=== PATIENT | male | born 1970 | race Caucasian/White ===

== ENCOUNTER 2022-09-02 19:56 | Emergency (ER) | payer BC, SELFPAY ==
--- NOTE | ~2022-09-02 | CT_ITS ---
CT of the Abdomen and Pelvis: Indication: Abdominal pain Technique: 2.5 mm axial scans were obtained through the abdomen and pelvis following intravenous adm inistration of 100 cc of Omnipaque 350. Dose reduction technique was used on this scan by utilizing a utomated exposure control and iterative reconstruction technique. The dose-length product (DLP) was 5 01.72 mGy-cm. COMPARISON: 01/18/2005 Findings: Scans through the lung bases are unremarkable. The liver, spleen, pancreas, gallbladder, adrenals and left kidney are within normal limits. There is a 5 mm right UVJ stone, resulting in mild right hydroureteronephrosis and delayed right nephrogram a s compared to the left side. Additional 3 mm nonobstructing right renal stone is also present. No naga dence of aortic aneurysm. No lymphadenopathy. No bowel obstruction or bowel wall thickening. There is no evidence to suggest acute appendicitis. Images through the pelvis were performed. Urinary bladder unremarkable. Prostate gland is minimally e nlarged. No ascites. Impression: 5 mm right UVJ stone, with mild right hydroureteronephrosis and delayed right nephrogram. Additional 3 mm nonobstructing right renal stone. Reviewed, dictated and finalized at location . Impression: 5 mm right UVJ stone, with mild right hydroureteronephrosis and delayed right n ephrogram. Additional 3 mm nonobstructing right renal stone.
[2022-09-02 19:58] VITALS: BP 184/112; PULSE 85; RESP 18; TEMP 36.6; O2SAT 99
--- NOTE | 2022-09-02 20:10 | ED.GENADULT ---
HPI - General Adult General Chief complaint: Abdominal Pain Stated complaint: right sided abd pain Time Seen by Provider: 09/02/22 20:04 History of Present Illness HPI narrative: Patient is a 52-year-old gentleman who presents the emergency department with chief complaint of abdominal pain. Patient reports that on Saturday he started having pain in the right lower quadrant that radiated to his back patient states it feels like an aching-like pain and reports that he got nauseated and had several episodes of vomiting that night the patient states that the pain has been continuing since then and reports that he went to an urgent care today and they sent him to the emergency department for evaluation. Patient reports no prior history of surgery in the abdomen did report that he had surgery on his scrotum for a blood vessel Related Data Allergies Allergy/AdvReac Type Severity Reaction Status Date / Time Sulfa (Sulfonamide Allergy Unknown Verified 09/02/22 19:57 Antibiotics) Review of Systems Review of Systems: A 10 system review of systems was completed on the patient and is negative except for what is stated in the HPI. Nursing and ancillary documentation was reviewed. Exam Narrative: GENERAL: Well-appearing, well-nourished, and in no acute distress. HEAD: Normocephalic, atraumatic. EYES: PERRLA and EOMI. ENT: Nares clear, no rhinorrhea or epistaxis. Mucous membranes moist. NECK: Supple. CHEST: Clear to auscultation. No respiratory distress. HEART: Regular rate and rhythm. No murmur heard. Normal peripheral pulses. ABDOMEN: Soft, mild tenderness to palpation in the right lower quadrant, nondistended, normal active bowel sounds. EXTREMITIES: Normal range of motion. No edema. SKIN: Warm, dry, no rash. NEURO: No focal deficits. Alert and oriented x3. PSYCH: Normal mood and affect. Course Vital Signs Vital signs: Vital Signs Temperature 36.6 C 09/02/22 19:58 Pulse Rate 85 09/02/22 19:58 Respiratory Rate 18 09/02/22 19:58 Blood Pressure 184/112 H 09/02/22 19:58 Pulse Oximetry 99 09/02/22 19:58 Oxygen Delivery Room Air 09/02/22 19:58 Temperature 36.6 C 09/02/22 19:58 Pulse Rate 79 09/02/22 22:52 Respiratory Rate 19 09/02/22 22:52 Blood Pressure 166/110 H 09/02/22 22:52 Pulse Oximetry 97 09/02/22 22:52 Oxygen Delivery Room Air 09/02/22 19:58 Medical Decision Making MDM Narrative Medical decision making narrative: Differential diagnosis includes appendicitis, diverticulitis, colitis, ureterolithiasis Laboratory studies were obtained and the patient which showed a white count of 7.0 electrolytes showed a sodium of 135 potassium 3.0 creatinine is 1.4 liver enzymes and lipase are within normal limits urinalysis showed no red blood cells and no white blood cells CT scan of the abdomen pelvis showed a 6 mm stone at the UVJ Patient was started on Flomax given a prescription for [place] and Zofran and referred to urology Vital Signs Vital Signs: Vital Signs Temperature 36.6 C 09/02/22 19:58 Pulse Rate 85 09/02/22 19:58 Respiratory Rate 18 09/02/22 19:58 Blood Pressure 184/112 H 09/02/22 19:58 Pulse Oximetry 99 09/02/22 19:58 Oxygen Delivery Room Air 09/02/22 19:58 Temperature 36.6 C 09/02/22 19:58 Pulse Rate 79 09/02/22 22:52 Respiratory Rate 19 09/02/22 22:52 Blood Pressure 166/110 H 09/02/22 22:52 Pulse Oximetry 97 09/02/22 22:52 Oxygen Delivery Room Air 09/02/22 19:58 Lab Data 09/02/22 20:21 09/02/22 20:21 Labs: Lab Results 09/02/22 09/02/22 Range/Units 20:21 21:45 WBC 7.0 (4.5-10.0) K/mm3 RBC 4.39 L (4.6-6.20) M/mm3 Hgb 14.1 (14.0-18.0) g/dL Hct 40.4 L (42.0-52.0) % MCV 92.0 (80-100) fl MCH 32.1 (26-34) pg MCHC 34.9 (32-36) g/dl RDW 11.6 (11.5-14.5) % Plt Count 196 (150-375) k/mm3 MPV 10.5 H (7.4-10.4) fl Immature Gran % (Au
[2022-09-02] MEDS: SODIUM CHLORIDE 0.9% IV 1,000 ML 999 ML IV CONT (20:22)
[2022-09-02 20:29] LABS: Basophils Percent Auto 0.1 % (0.2-1.2); Eosinophils Absolute Auto 0.1 K/mm3 (0-0.3); Eosinophils Percent Auto 1.2 % (0-4.4); Hematocrit 40.4 % (42.0-52.0); Hemoglobin 14.1 g/dL (14.0-18.0); Immature Granulocyte Absolute 0.01 K/mm3 (0.00-0.031); Immature Granulocyte Percent A 0.1 % (0-0.5); Lymphocytes Absolute Auto 0.84 K/mm3 (0.9-3.2); Lymphocytes Percent Auto 12.1 % (18.3-44.2); Mean Corpuscular HGB Conc 34.9 g/dl (32-36); Mean Corpuscular Hemoglobin 32.1 pg (26-34); Mean Platelet Volume 10.5 fl (7.4-10.4); Monocytes Absolute Auto 0.8 K/mm3 (0.1-0.6); Monocytes Percent Auto 11.2 % (2.6-8.5); Neutrophils Absolute Auto 5.2 K/mm3 (1.3-6.7); Neutrophils Percent Auto 75.3 % (45.5-73.1); Platelet Count Result 196 k/mm3 (150-375); Red Blood Count 4.39 M/mm3 (4.6-6.20); Red Cell Distribution Width 11.6 % (11.5-14.5)
[2022-09-02 20:30] VITALS: BP 166/107; PULSE 77; RESP 14; O2SAT 99
[2022-09-02 20:42] LABS: Alanine Aminotransferase 44 U/L (6-50); Albumin Level 4.1 g/dL (3.5-5.1); Alkaline Phosphatase 89 U/L (38-126); Anion Gap 5 mmol/L (8-16); Aspartate Amino Transferase 49 U/L (17-59); Bilirubin,Total 0.6 mg/dL (0.2-1.3); Blood Urea Nitrogen 18 mg/dL (9-20); Calcium 8.5 mg/dL (8.4-10.2); Carbon Dioxide 29 mmol/L (22-30); Chloride 101 mmol/L (98-107); Estimated CRCL calculation 58 ml/min; Estimated Glomerular Filt Rate 53; Glucose 107 mg/dL (65-110); Lipase 57 U/L (23-300); Sodium 135 mmol/L (137-145)
[2022-09-02 21:15] VITALS: BP 168/118; PULSE 75; RESP 14; O2SAT 100
[2022-09-02 21:53] LABS: Appearance Urine Clear (Clear); Bacteria Urine None Seen /hpf; Bilirubin Urine Negative (Negative); Blood Urine Negative (Negative); Color Urine Yellow (Yellow); Glucose Urine UA Negative (Negative); Ketones Urine Negative (Negative); Leukocyte Esterase Ur Negative LEU/UL (Negative); Nitrate Urine Negative (Negative); Non Pathogenic Casts 0-2; Protein Urine Trace mg/dL (Negative); RBC Urine 0-2 /hpf (0-2); Specific Grav Ur 1.018 (1.001-1.035); Squamous Epithelial Cell Urine None seen /hpf (Few); WBC Urine 0-5 /hpf; pH Urine 6.5 (5.0-9.0)
[2022-09-02 21:55] LABS: Add Urine Microscopic? YES
[2022-09-02] MEDS: KETOROLAC 15 MG/ML VIAL (*BKC) IV PUSH (22:27)
[2022-09-02 22:52] VITALS: BP 166/110; PULSE 79; RESP 19; O2SAT 97
[2022-09-02] MEDS: TAMSULOSIN HCL 0.4 MG CAPSULE PO (23:19)
[2022-09-02 23:20] VITALS: BP 155/98; PULSE 90; RESP 19; O2SAT 100
== END 2022-09-02 23:20 | disposition home or self-care (01) ==
PROVIDERS: Emergency Provider Emergency Medicine
DX: N13.2 Hydronephrosis with renal and ureteral calculous obstruction (principal)
CPT/HCPCS: 36415; 74177; 80053; 81001; 83690; 85025; 96361; 96374; 99284; A9270; J1885; J7030; Q9967

== ENCOUNTER 2022-09-19 10:04 | Outpatient (CLI) | payer BC, SELFPAY ==
--- NOTE | ~2022-09-19 | CT_ITS ---
EXAMINATION: CT abdomen pelvis wo con DATE: 09/19/2022 10:22 INDICATION: 5 mm right ureterovesical junction stone and mild right hydroureteronephrosis reported on 09/12/2022 CT abdomen pelvis TECHNIQUE: Computed tomography (CT) of the abdomen and pelvis was performed without intravenous contr ast. Automated exposure control and iterative reconstruction technique were employed. Exam dose: 193 .60 mGy-cm total exam DLP. COMPARISON: 09/02/2022 CT abdomen pelvis FINDINGS: There is minimal atelectasis at the lung bases. Normal heart size. No pericardial or pleura l effusion. Small sliding hiatal hernia. The liver, gallbladder, bile ducts, spleen, pancreas, pancreatic duct and adrenal glands are unremark able. Hyperdense 12 mm exophytic right renal cyst. No other renal mass lesion or any urinary tract calculus or hydroureteronephrosis is noted on the current examination. Interval resolution of distal right ur eteral calculus and right hydroureteronephrosis since 09/02/2022. The urinary bladder is unremarkable. There is prostate enlargement and calcification. Normal caliber of the abdominal aorta. No intraperitoneal or retroperitoneal or pelvic mass lesion or adenopathy or ascites. Normal appendix. Diverticulosis of the left colon; no CT evidence of diverticulitis. No bowel obstruc tion, bowel wall thickening, pneumatosis or intraperitoneal free air. Included skeletal structures are unremarkable IMPRESSION: Resolution of 5 mm distal right ureteral calculus and mild right hydronephrosis since Reviewed, dictated and finalized at [facility]. Reviewed, dictated and finalized at location [facility]. IMPRESSION: Resolution of 5 mm distal right ureteral calculus and mild right h ydronephrosis since 09/12/2022
== END 2022-09-19 10:05 | disposition home or self-care (01) ==
PROVIDERS: Visit Provider Nurse Practitioner
DX: N20.1 Calculus of ureter (principal)
CPT/HCPCS: 74176